=== PATIENT | female | born 1995 ===

== ENCOUNTER 2020-04-21 22:30 | Emergency (ER) | payer SELFPAY ==
[2020-04-22 03:33] VITALS: BP 110/54
[2020-04-22 03:36] LABS: Basophils # (Auto) 0.1 K/mm3 (0.0-0.1); Basophils % (Auto) 0.9 % (0.0-1.8); Eosinophils % (Auto) 0.1 % (0.0-4.3); Hematocrit 28.4 % (30.3-42.9); Hemoglobin 8.5 gm/dl (10.1-14.3); Lymphocytes # (Auto) 2.1 K/mm3 (1.2-5.4); Lymphocytes % (Auto) 23.5 % (13.4-35.0); Mean Corpuscular HGB Conc 30 % (30-34); Monocytes # (Auto) 0.5 K/mm3 (0.0-0.8); Monocytes % (Auto) 5.1 % (0.0-7.3); Platelet Count 390 K/mm3 (140-440); Red Blood Count 4.69 M/mm3 (3.65-5.03)
[2020-04-22 03:56] LABS: Blood Urea Nitrogen 9 mg/dL (7-17); Calcium 9.3 mg/dL (8.4-10.2); Hemolysis Index 1
[2020-04-22 03:58] LABS: BUN/Creatinine Ratio 13
[2020-04-22 04:26] LABS: Mean Corpuscular Volume 61 fl (79-97)
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
== END 2020-04-22 06:00 | disposition home or self-care (01) ==
LOC: ED 22:30
DX: F10.920 Alcohol use, unspecified with intoxication, uncomplicated (principal); F41.9 Anxiety disorder, unspecified
CPT/HCPCS: 36415; 80048; 80320; 84703; 85025; 99283; G0480

== ENCOUNTER 2021-11-22 13:16 | Emergency (ER) | payer SELFPAY ==
[2021-11-22 13:43] VITALS: BP 102/61
== END 2021-11-22 19:00 | disposition left against medical advice (07) ==
LOC: ED 13:16
DX: R51.9 Headache, unspecified (principal); R11.0 Nausea; Z53.21 Procedure and treatment not carried out due to patient leaving prior to being seen by health care provider